=== PATIENT | female | born 2000 | race Caucasian/White ===

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

== ENCOUNTER 2022-08-07 16:57 | Emergency (ER) | payer MEDICAID, OTHER ==
[2022-08-07 18:13] VITALS: TEMP 98.1
[2022-08-07 18:38] LABS: Appearance,Urine Cloudy (Clear); Bacteria,Urine Occasional /hpf; Bilirubin,Urine Negative (Negative); Blood,Urine Negative (Negative); Color,Urine Yellow; Glucose,Urine (UA) Negative (Negative); Ketones,Urine Trace (Negative); Leukocyte Esterase,Urine Moderate (Negative); Mucus,Urine Few /hpf; Nitrite,Urine Negative (Negative); PH, Urine 5.5 (5.0-8.0); Protein,Urine Trace (Negative); Specific Gravity,Urine 1.033 (1.001-1.035); Squamous Epithelial Cell,Urine 4 /hpf (0-4); Urobilinogen,Urine <2.0 mg/dL (<2.0); WBC,Urine 4 /hpf (0-5)
[2022-08-07] MEDS ORDERED: SODIUM CHLORIDE 0.9% 1,000 ML IV STA (19:46)
--- NOTE | 2022-08-07 19:53 | ED ---
General Adult HPI - General Chief complaint: Abdominal Pain Stated complaint: newly preg, cramping Time Seen by Provider: 08/07/22 19:38 Source: patient, RN notes reviewed Mode of arrival: ambulatory Limitations: no limitations - History of Present Illness Initial comments: 22-year-old female presents to the emergency Department with complaints of lower abdominal cramping that extends throughout her abdomen. States she has had this discomfort for the past week and a half. Was seen by her PCP this past week and started on an antidepressant, then found out yesterday that she is . LMP [id number]. . Had one day of light spotting a couple weeks ago but no vaginal bleeding or discharge currently. Reports mild nausea today. Denies fever, chills, headache, dizziness, chest pain, shortness of breath, vomiting, diarrhea, or dysuria. - Related Data Home Medications Medication Instructions Recorded Confirmed Dolutegravir Sodium [Tivicay] 50 mg PO DAILY 08/01/17 08/01/17 Emtricitabine/Tenofovir (Tdf) 1 tab PO DAILY 08/01/17 08/01/17 [Truvada 200 mg-300 mg Tablet] Previous Rx's Medication Instructions Recorded Xzu-Bmsh-Sawkd Acid 1 each PO DAILY #30 cap 08/08/22 [-U Capsule] Allergies Allergy/AdvReac Type Severity Reaction Status Date / Time No Known Allergies Allergy Verified 08/07/22 18:13 Review of Systems ROS Statement: Those systems with pertinent positive or pertinent negative responses have been documented in the HPI. ROS Other: All systems not noted in ROS Statement are negative. Past Medical History Past Medical History: No Reported History Additional Past Medical History / Comment(s): past suicidal attempt History of Any Multi-Drug Resistant Organisms: None Reported Past Surgical History: Tonsillectomy Past Anesthesia/Blood Transfusion Reactions: No Reported Reaction Past Psychological History: Anxiety, Depression Smoking Status: Never smoker Past Alcohol Use History: Occasional Past Drug Use History: None Reported General Exam Limitations: no limitations General appearance: alert, in no apparent distress ENT exam: Present: normal exam, mucous membranes moist Respiratory exam: Present: normal lung sounds bilaterally. Absent: respiratory distress, wheezes, rales, rhonchi, stridor Cardiovascular Exam: Present: regular rate, normal rhythm, normal heart sounds. Absent: systolic murmur, diastolic murmur, rubs, gallop, clicks GI/Abdominal exam: Present: soft, normal bowel sounds. Absent: distended, tenderness, guarding, rebound, rigid External exam: Present: normal external exam Back exam: Absent: CVA tenderness (R), CVA tenderness (L) Neurological exam: Present: alert, oriented X3, CN II-XII intact Psychiatric exam: Present: normal affect, normal mood Skin exam: Present: warm, dry, intact, normal color. Absent: rash Course Vital Signs 08/07/22 08/07/22 18:11 22:06 Temperature 98.1 F Pulse Rate 98 93 Respiratory 16 18 Rate Blood Pressure 134/84 136/78 O2 Sat by Pulse 98 98 Oximetry - Reevaluation(s) Reevaluation #1: 08/07/22 19:45 Upon initial evaluation, patient is well-appearing, moving freely, and in no acute distress. She verbalizes concern for ectopic . Abdominal discomfort is nonlocalized and not reproducible with palpation. Explained plan of care including laboratory studies and ultrasound. Patient is agreeable. Family present at bedside. 08/07/22 21:45 Results were reviewed and discussed at length with patient. Reiterated the importance of having repeat beta hCG drawn in 48 hours as initial level provides baseline from which to reevaluate. Explained nondiagnostic ultrasound. Given her minimal discomfort, stable vital signs, and current laboratory studies, patient will be discharged home to follow up with her PCP. Did provide [facility] follow-up information and encouraged her to call on Tuesday to set up an initial appointment. Strict return parameters were discussed in detail. Patient and family verbalized understanding and agreed with this plan. 08/08/22 14:59 In reviewing this patient's chart, I realized that a vitamin had not yet been prescribed therefore one will be sent to patient's pharmacy. Medical Decision Making - Medical Decision Making This is a pleasant 22-year-old female with no significant past medical history w ho presents to the emergency department for evaluation of generalized abdominal cramping in early . Patient's last menstrual period was 54547. This is her first . Upon exam, patient is well-appearing and in no acute distress. She clearly articulates diffuse abdominal cramping discomfort that is non-peritoneal and not reproducible. Given the concern for ectopic , ultrasound was obtained, however no IUP or adnexal mass was identified. Laboratory studies were obtained. Beta hCG is 210.8. There is minimal leukocytosis. Urinalysis is not indicative of UTI. Results were discussed with patient at length. Because of her low hCG level, stable vital signs, and minim al discomfort, she will be discharged home with instructions to have repeat beta hCG drawn in 48 hours along with close follow-up. Return parameters were discussed in detail. Patient verbalizes understanding and agrees with this plan. Attending: Edwige. Note: vitamin called into pharmacy. - Lab Data Result diagrams: 08/07/22 19:55 08/07/22 19:55 Lab Results 08/07/22 08/07/22 08/07/22 Range/Units 18:20 18:20 19:55 WBC 12.8 H (3.8-10.6) k/uL RBC 5.18 (3.80-5.40) m/uL Hgb 14.1 (11.4-16.0) gm/dL Hct 42.7 (34.0-46.0) % MCV 82.5 (80.0-100.0) fL MCH 27.2 (25.0-35.0) pg MCHC 32.9 (31.0-37.0) g/dL RDW 14.3 (11.5-15.5) % Plt Count 354 (150-450) k/uL MPV 7.8 Neutrophils % 58 % Lymphocytes % 33 % Monocytes % 5 % Eosinophils % 1 % Basophils % 1 % Neutrophils # 7.4 (1.3-7.7) k/uL Lymphocytes # 4.2 (1.0-4.8) k/uL Monocytes # 0.6 (0-1.0) k/uL Eosinophils # 0.1 (0-0.7) k/uL Basophils # 0.1 (0-0.2) k/uL Sodium (137-145) mmol/L Potassium (3.5-5.1) mmol/L Chloride (98-107) mmol/L Carbon Dioxide (22-30) mmol/L Anion Gap mmol/L BUN (7-17) mg/dL Creatinine (0.52-1.04) mg/dL Est GFR (CKD-EPI)AfAm (>60 ml/min/1.73 sqM) Est GFR (CKD-EPI)NonAf (>60 ml/min/1.73 sqM) Glucose (74-99) mg/dL Calcium (8.4-10.2) mg/dL Total Bilirubin (0.2-1.3) mg/dL AST (14-36) U/L ALT (4-34) U/L Alkaline Phosphatase (38-126) U/L Total Protein (6.3-8.2) g/dL Albumin (3.5-5.0) g/dL HCG, Quant mIU/mL Urine Color Yellow Urine Appearance Cloudy H (Clear) Urine pH 5.5 (5.0-8.0) Ur Specific Orange 1.033 (1.001-1.035) Urine Protein Trace H (Negative) Urine Glucose (UA) Negative (Negative) Urine Ketones Trace H (Negative) Urine Blood Negative (Negative) Urine Nitrite Negative (Negative) Urine Bilirubin Negative (Negative) Urine Urobilinogen <2.0 (<2.0) mg/dL Ur Leukocyte Esterase Moderate H (Negative) Urine WBC 4 (0-5) /hpf Ur Squamous Epith Cells 4 (0-4) /hpf Urine Bacteria Occasional H (None) /hpf Urine Mucus Few H (None) /hpf Urine HCG, Qual Detected (Not Detectd) Blood Type Blood Type Recheck Bld Type Recheck Status 08/07/22 08/07/22 Range/Units 19:55 20:00 WBC (3.8-10.6) k/uL RBC (3.80-5.40) m/uL Hgb (11.4-16.0) gm/dL Hct (34.0-46.0) % MCV (80.0-100.0) fL MCH (25.0-35.0) pg MCHC (31.0-37.0) g/dL RDW (11.5-15.5) % Plt Count (150-450) k/uL MPV Neutrophils % % Lymphocytes % % Monocytes % % Eosinophils % % Basophils % % Neutrophils # (1.3-7.7) k/uL Lymphocytes # (1.0-4.8) k/uL Monocytes # (0-1.0) k/uL Eosinophils # (0-0.7) k/uL Basophils # (0-0.2) k/uL Sodium 137 (137-145) mmol/L Potassium 4.1 (3.5-5.1) mmol/L Chloride 106 (98-107) mmol/L Carbon Dioxide 24 (22-30) mmol/L Anion Gap 7 mmol/L BUN 10 (7-17) mg/dL Creatinine 0.60 (0.52-1.04) mg/dL Est GFR (CKD-EPI)AfAm >90 (>60 ml/min/1.73 sqM) Est GFR (CKD-EPI)NonAf >90 (>60 ml/min/1.73 sqM) Glucose 108 H (74-99) mg/dL Calcium 9.1 (8.4-10.2) mg/dL Total Bilirubin 0.3 (0.2-1.3) mg/dL AST 22 (14-36) U/L ALT 28 (4-34) U/L Alkaline Phosphatase 77 (38-126) U/L Total Protein 6.9 (6.3-8.2) g/dL Albumin 4.3 (3.5-5.0) g/dL HCG, Quant 210.8 mIU/mL Urine Color Urine Appearance (Clear) Urine pH (5.0-8.0) Ur Specific Orange (1.001-1.035) Urine Protein (Negative) Urine Glucose (UA) (Negative) Urine Ketones (Negative) Urine Blood (Negative) Urine Nitrite (Negative) Urine Bilirubin (Negative) Urine Urobilinogen (<2.0) mg/dL Ur Leukocyte Esterase (Negative) Urine WBC (0-5) /hpf Ur Squamous Epith Cells (0-4) /hpf Urine Bacteria (None) /hpf Urine Mucus (None) /hpf Urine HCG, Qual (Not Detectd) Blood Type O Positive Blood Type Recheck No Previous Record Bld Type Recheck Status [facility] ONLY - Radiology Data Radiology results: report reviewed, image reviewed ultrasound was obtained. Report was reviewed in its entirety. Impression per Dr. Ortiz is uterus is empty. No evidence of a gestational sac. No adnexal mass. Disposition Clinical Impression: Abdominal pain during in first trimester Disposition: HOME SELF-CARE Condition: Stable Instructions (If sedation given, give patient instructions): Abdominal Pain in (ED) Additional Instructions: Increase fluids. Rest. Minimize vigorous activity. Have repeat blood work drawn in 48 hours. Initial beta hCG 210.8 Follow-up with your PCP and establish with [facility]. Return to the emergency department with any new, worsening, or concerning symptoms. Prescriptions: Fcm-Zoog-Brsxo Acid [-U Capsule] 1 each PO DAILY #30 cap Is patient prescribed a controlled substance at d/c from ED?: No Referrals: Elmer Hunt DO [Primary Care Provider] - 1-2 days [facility] [Provider Group] - 1-2 days Time of Disposition: 21:47
[2022-08-07 20:17] LABS: Basophils # (A) 0.1 k/uL (0-0.2); Basophils % (A) 1 %; Eosinophils # (A) 0.1 k/uL (0-0.7); Eosinophils % (A) 1 %; HCT 42.7 % (34.0-46.0); HGB 14.1 gm/dL (11.4-16.0); Lymphocytes # (A) 4.2 k/uL (1.0-4.8); Lymphocytes % (A) 33 %; MCH 27.2 pg (25.0-35.0); MCHC 32.9 g/dL (31.0-37.0); MCV 82.5 fL (80.0-100.0); Mean Platelet Volume 7.8; Monocytes # (A) 0.6 k/uL (0-1.0); Monocytes % (A) 5 %; Neutrophils # (A) 7.4 k/uL (1.3-7.7); Neutrophils % (A) 58 %; Platelet Count 354 k/uL (150-450); RBC 5.18 m/uL (3.80-5.40); RDW 14.3 % (11.5-15.5); WBC 12.8 k/uL (3.8-10.6)
[2022-08-07 20:49] LABS: ALT 28 U/L (4-34); AST 22 U/L (14-36); African American GFR (CKD) >90 (>60 ml/min/1.73 sqM); Albumin 4.3 g/dL (3.5-5.0); Alkaline Phosphatase 77 U/L (38-126); Anion Gap 7 mmol/L; Blood Urea Nitrogen 10 mg/dL (7-17); Calcium 9.1 mg/dL (8.4-10.2); Carbon Dioxide 24 mmol/L (22-30); Chloride 106 mmol/L (98-107); Glucose 108 mg/dL (74-99); Non-African American GFR(CKD) >90 (>60 ml/min/1.73 sqM); Potassium 4.1 mmol/L (3.5-5.1); Sodium 137 mmol/L (137-145); Total Bilirubin 0.3 mg/dL (0.2-1.3); Total Protein 6.9 g/dL (6.3-8.2)
[2022-08-07 21:05] LABS: HCG,Quantitative Serum 210.8 mIU/mL
--- NOTE | 2022-08-07 21:13 | US ---
EXAMINATION TYPE: Transabdominal DATE OF EXAM: 08/07/2022 8:53 PM COMPARISON: NONE CLINICAL HISTORY: lower abdominal cramping in early . Irregular menses- estimated EXAM PERFORMED: Transabdominal (TA) EXAM MEASUREMENTS: GESTATIONAL AGE / DATING Physician Established: Not yet established Dates by LMP: Estimated (9 weeks/4 days) EDC: 03/08/2023 Dates by First Scan: No previous this is first scan Dates by Current Scan for: No IUP seen at this time MATERNAL ANATOMY Uterus: 7.0 x 4.0 x 3.9 cm Right Ovary: 2.7 x 1.8 x 1.9 cm Left Ovary: 3.0 x 2.0 x 2.2 cm Post CDS / Adnexa: no free fluid Presence of free fluid: no Presence of corpus luteal cyst: no GESTATION / SURVEY MSD: No gestational sac visualized at time of scan IUP: No IUP seen at this time Date of LMP: Estimated 06/01/2022, G1 Beta HcG (if available): Not available at this time No GS, YS or CRL visualized at time of scan. Endometrium appears thickened = 1.3 cm. IMPRESSION: Uterus is empty. No evidence of a gestational sac.no adnexal mass.
[2022-08-07 22:07] VITALS: BP 136/78; PULSE 93; RESP 18
== END 2022-08-07 22:06 | disposition home or self-care (01) ==
LOC: EC 16:57
DX: O26.891 Other specified pregnancy related conditions, first trimester (principal); R10.30 Lower abdominal pain, unspecified; Z3A.09 9 weeks gestation of pregnancy
CPT/HCPCS: 36415; 76801; 80053; 81001; 81025; 84702; 85025; 86900; 86901; 96360; 99284

== ENCOUNTER 2022-08-09 09:33 | Emergency (ER) | payer MEDICAID ==
[2022-08-09 09:52] VITALS: BP 150/95; PULSE 85; RESP 18; TEMP 98.1
--- NOTE | 2022-08-09 10:27 | ED ---
Female Urogenital HPI - General Chief complaint: Vaginal Bleeding Stated complaint: Cramps,5wks Time Seen by Provider: 08/09/22 09:59 Source: patient Mode of arrival: ambulatory Limitations: no limitations - History of Present Illness Initial comments: 22-year-old female presents emergency Department with chief complaint of vaginal bleeding. Patient was seen here 2 days ago for abdominal cramping early . Patient is A0 approximate 5 weeks . Patient states started having some bleeding noted she still having cramping. Patient did have such labs which showed an hCG of 213. Patient is O+ blood type. Patient offers no other significant complaints. - Related Data Home Medications Medication Instructions Recorded Confirmed Dolutegravir Sodium [Tivicay] 50 mg PO DAILY 08/01/17 08/01/17 Emtricitabine/Tenofovir (Tdf) 1 tab PO DAILY 08/01/17 08/01/17 [Truvada 200 mg-300 mg Tablet] Previous Rx's Medication Instructions Recorded Qgt-Czti-Vhont Acid 1 each PO DAILY #30 cap 08/08/22 [-U Capsule] Allergies Allergy/AdvReac Type Severity Reaction Status Date / Time No Known Allergies Allergy Verified 08/09/22 09:52 Review of Systems ROS Statement: Those systems with pertinent positive or pertinent negative responses have been documented in the HPI. ROS Other: All systems not noted in ROS Statement are negative. Past Medical History Past Medical History: No Reported History Additional Past Medical History / Comment(s): past suicidal attempt History of Any Multi-Drug Resistant Organisms: None Reported Past Surgical History: Tonsillectomy Past Anesthesia/Blood Transfusion Reactions: No Reported Reaction Past Psychological History: Anxiety, Depression Smoking Status: Never smoker Past Alcohol Use History: Occasional Past Drug Use History: None Reported General Exam Limitations: no limitations General appearance: alert, in no apparent distress Head exam: Present: atraumatic, normocephalic, normal inspection Eye exam: Present: normal appearance, PERRL, EOMI. Absent: scleral icterus, conjunctival injection, periorbital swelling ENT exam: Present: normal exam, normal oropharynx, mucous membranes moist Neck exam: Present: normal inspection, full ROM. Absent: tenderness, meningismus, lymphadenopathy Respiratory exam: Present: normal lung sounds bilaterally. Absent: respiratory distress, wheezes, rales, rhonchi, stridor Cardiovascular Exam: Present: regular rate, normal rhythm, normal heart sounds. Absent: systolic murmur, diastolic murmur, rubs, gallop, clicks GI/Abdominal exam: Present: soft, normal bowel sounds. Absent: distended, tenderness, guarding, rebound, rigid Back exam: Absent: CVA tenderness (R), CVA tenderness (L) Neurological exam: Present: alert Course Vital Signs 08/09/22 09:49 Temperature 98.1 F Pulse Rate 85 Respiratory 18 Rate Blood Pressure 150/95 O2 Sat by Pulse 98 Oximetry Medical Decision Making - Medical Decision Making Patient's hCG did increase at this time. Patient will have repeat labs in 2 days. Return parameters were discussed. - Lab Data Lab Results 08/09/22 Range/Units 10:07 HCG, Quant 429.5 mIU/mL Disposition Clinical Impression: Threatened miscarriage in early Disposition: HOME SELF-CARE Condition: Stable Instructions (If sedation given, give patient instructions): Threatened Miscarriage (ED) Additional Instructions: Please return to the Emergency Department if symptoms worsen or any other concerns. Is patient prescribed a controlled substance at d/c from ED?: No Referrals: Elmer Hunt DO [Primary Care Provider] - 1-2 days Time of Disposition: 11:45
== END 2022-08-09 11:55 | disposition home or self-care (01) ==
LOC: EC 09:33
DX: O20.0 Threatened abortion (principal); Z3A.01 Less than 8 weeks gestation of pregnancy
CPT/HCPCS: 36415; 84702; 99284

== ENCOUNTER → 2022-08-11 | Outpatient (CLI) | payer MEDICAID | END | disposition home or self-care (01) | LOC: LABWHC1 13:23 | PROVIDERS: ATTEND Physician Assistant | DX: O02.1 Missed abortion (principal); Z3A.00 Weeks of gestation of pregnancy not specified | CPT/HCPCS: 36415; 84702 ==

== ENCOUNTER 2022-12-23 17:21 | Outpatient (CLI) | payer MEDICAID, OTHER ==
[2022-12-23 18:14] LABS: Glucose,Whole Blood 92 mg/dL (70-110)
[2022-12-23 18:46] VITALS: BP 140/65; PULSE 104; RESP 18; TEMP 98.7
--- NOTE | 2022-12-29 05:43 | P.MSEPDOC ---
Presenting Problems - Arrival Data Date of Arrival on Unit: 12/23/22 Time of Arrival on Unit: 17:21 Mode of Transport: Ambulatory - Complaint OB-Reason for Admission/Chief Complaint: Pain Comment: R sided round ligament pain and tingling of fingers on bilateral hands Medical History - Information : 1 Number of Living Children: 0 - Gestational Age Gestational Age by ANT (wks/days): 23 Weeks and 5 Days Review of Systems - Review of Systems Constitutional: No problems Breast: No problems ENT: No problems Cardiovascular: No problems Respiratory: No problems Gastrointestinal: No problems Genitourinary: No problems Musculoskeletal: No problems Neurological: No problems Skin: No problems Vital Signs - Temperature Temperature: 98.7 F Temperature Source: Temporal Artery Scan - Pulse Right Sitting Brachial Pulse Rate: 104 Pulse Assessment Method: Automatic Cuff - Respirations Respiratory Rate: 18 Oxygen Delivery Method: Room Air O2 Sat by Pulse Oximetry: 98 - Blood Pressure Right Arm Sitting Blood Pressure: 140/65 Blood Pressure Mean: 90 Blood Pressure Source: Automatic Cuff Medical Screen Scoring - Assessment - Baby A Baseline FHR: 140 Heart Rate - NICHD Category: Category I (Normal) Physician Notification - Physician Notified Physician Notified Date: 12/23/22 Physician Notified Time: 18:40 Physician: Andie Larsen Order Received: Yes - Notification Comment Comment: Spk c\Dr. Larsen, reviewed pts concerns of R sided pain, sharp and pulling. in nature when ambulating, resolved at rest and tingling fingertips. Accuchek taken, 92. FHT appropriate for gestational age. No contractions. Has appt c\Hilary tomorrow. States to d/c home and follow up at scheduled appt tomorrow. Maternal Triage Index - Maternal Triage Index Presenting for scheduled procedure w/no complaint: No - Stat/Priority 1 Stat Priority 1: No - Urgent/Priority 2 Urgent Priority 2: No - Prompt/Priority 3 Prompt Priority 3: No - Non-Urgent/Priority 4 Non-Urgent Priority 4: Yes Criteria Met for Priority 4: R sided ligament pain Disposition - Disposition OB Disposition: Discharge to home, Written follow up instructions reviewed Discharge Date: 12/23/22 Discharge Time: 18:45 I agree with the RN Medical Screening Exam: Yes Case reviewed; plan agreed upon as documented in EMR&OBIX.: Yes Diagnosis: musculoskeletal pain in
== END 2022-12-23 18:45 | disposition home or self-care (01) ==
LOC: FBPOP 17:21
PROVIDERS: ATTEND Obstetrics & Gynecology
DX: O26.892 Other specified pregnancy related conditions, second trimester (principal); O99.332 Smoking (tobacco) complicating pregnancy, second trimester; F17.200 Nicotine dependence, unspecified, uncomplicated; Z3A.23 23 weeks gestation of pregnancy
CPT/HCPCS: 99213

== ENCOUNTER 2023-01-15 11:51 | Outpatient (CLI) | payer OTHER ==
[2023-01-15 13:41] VITALS: BP 145/66; PULSE 100; RESP 17; TEMP 98.1
--- NOTE | 2023-01-26 22:05 | P.MSEPDOC ---
Presenting Problems - Arrival Data Date of Arrival on Unit: 01/15/23 Time of Arrival on Unit: 11:51 Mode of Transport: Ambulatory - Complaint OB-Reason for Admission/Chief Complaint: Decreased Movement, Other Comment: pt presented to triage for no movement since last night Medical History - Information : 1 Para: 0 Term: 0 : 0 Abortions: Spontaneous or Elective: 0 Number of Living Children: 0 - Gestational Age Gestational Age by ANT (wks/days): 27 Weeks and 0 Days Review of Systems - Review of Systems Constitutional: No problems Breast: No problems ENT: No problems Cardiovascular: No problems Respiratory: No problems Gastrointestinal: No problems Genitourinary: No problems Musculoskeletal: No problems Neurological: No problems Skin: No problems Vital Signs - Temperature Temperature: 98.1 F Temperature Source: Temporal Artery Scan - Pulse Right Brachial Pulse Rate: 100 Pulse Assessment Method: Automatic Cuff - Respirations Respiratory Rate: 17 Oxygen Delivery Method: Room Air O2 Sat by Pulse Oximetry: 98 - Blood Pressure Right Arm Blood Pressure: 145/66 Blood Pressure Mean: 92 Blood Pressure Source: Automatic Cuff Medical Screen Scoring - Uterine Contractions Resting: Soft to palpation - Assessment - Baby A Baseline FHR: 135 Heart Rate - NICHD Category: Category I (Normal) Physician Notification - Physician Notified Physician Notified Date: 01/15/23 Physician Notified Time: 12:33 Physician: Andie Larsen New Order Received: Yes - Notification Comment Comment: category 1 fht's, pt feeling movement once she was in triage, pt will follow up in office at scheduled appt with Dr. Richard Maternal Triage Index - Maternal Triage Index Presenting for scheduled procedure w/no complaint: No - Stat/Priority 1 Stat Priority 1: No - Urgent/Priority 2 Urgent Priority 2: Yes Provider Notified: Andie Larsen Provider Notified Time: 12:33 Criteria Met for Priority 2: pt presented to triage for no movement since last night Disposition - Disposition OB Disposition: Triage, Discharge to home, Written follow up instructions desmond morrell Discharge Date: 01/15/23 Discharge Time: 12:42 I agree with the RN Medical Screening Exam: Yes Case reviewed; plan agreed upon as documented in EMR&OBIX.: Yes Diagnosis: decreased movement
== END 2023-01-15 12:45 | disposition home or self-care (01) ==
LOC: FBPOP 11:51
PROVIDERS: ATTEND Obstetrics & Gynecology
DX: O36.8121 Decreased fetal movements, second trimester, fetus 1 (principal); Z3A.27 27 weeks gestation of pregnancy; O99.332 Smoking (tobacco) complicating pregnancy, second trimester; F17.200 Nicotine dependence, unspecified, uncomplicated
CPT/HCPCS: 99213

== ENCOUNTER 2023-03-01 13:02 | Outpatient (CLI) | payer OTHER ==
[2023-03-01 14:22] VITALS: BP 124/69; PULSE 114; RESP 18; TEMP 97.3
--- NOTE | 2023-03-23 11:32 | P.MSEPDOC ---
Presenting Problems - Arrival Data Date of Arrival on Unit: 03/01/23 Time of Arrival on Unit: 13:02 Mode of Transport: Ambulatory - Complaint OB-Reason for Admission/Chief Complaint: Decreased Movement Comment: Decreased movement since yesterday morning, concerned about elevated blood sugars Medical History - Information : 1 Para: 0 - Gestational Age Gestational Age by ANT (wks/days): 33 Weeks and 3 Days - History Complications: GDM Review of Systems - Review of Systems Constitutional: No problems Breast: No problems ENT: No problems Cardiovascular: No problems Respiratory: No problems Gastrointestinal: No problems Genitourinary: No problems Musculoskeletal: No problems Neurological: No problems Skin: No problems Vital Signs - Temperature Temperature: 97.3 F Temperature Source: Temporal Artery Scan - Pulse Right Sitting Brachial Pulse Rate: 114 Pulse Assessment Method: Automatic Cuff - Respirations Respiratory Rate: 18 Oxygen Delivery Method: Room Air - Blood Pressure Right Arm Sitting Blood Pressure: 124/69 Blood Pressure Mean: 87 Blood Pressure Source: Automatic Cuff Medical Screen Scoring - Assessment - Baby A Baseline FHR: 140 Heart Rate - NICHD Category: Category I (Normal) NST: Reactive Physician Notification - Physician Notified Physician Notified Date: 03/01/23 Physician Notified Time: 14:00 Physician: Dianna Richard - Notification Comment Comment: Spk c\celestina Thornton of pts arrival to triage, concerns of decreased. movement and elevated blood sugars. +FM, audible and palpable, reactive FHT, NST. not complete r/t time on monitor, difficult to trace FHT r/t pt habitus. Reviewed pts. blood sugar log. Pt cancelled diabetes nutrition education r/t nausea today. Order rec'd. to complete NST and discharge home c\order to follow up and rescheduled education. Maternal Triage Index - Urgent/Priority 2 Urgent Priority 2: Yes Provider Notified: Dianna Richard Provider Notified Time: 14:00 Criteria Met for Priority 2: Decreased movement Disposition - Disposition OB Disposition: Discharge to home, Written follow up instructions reviewed Discharge Date: 03/01/23 Discharge Time: 14:20 I agree with the RN Medical Screening Exam: Yes Physician's MSE Comment: I have neither seen nor examined the patient Case reviewed; plan agreed upon as documented in EMR&OBIX.: Yes Diagnosis: RELATED CONDITIONS, UNSPECIFIED, THIRD TRIMESTER
== END 2023-03-01 14:20 | disposition home or self-care (01) ==
LOC: FBPOP 13:02
PROVIDERS: ATTEND Obstetrics & Gynecology
DX: O36.8131 Decreased fetal movements, third trimester, fetus 1 (principal); F17.200 Nicotine dependence, unspecified, uncomplicated; O24.419 Gestational diabetes mellitus in pregnancy, unspecified control; O99.333 Smoking (tobacco) complicating pregnancy, third trimester; Z3A.33 33 weeks gestation of pregnancy
CPT/HCPCS: 59025; G0463; 99213

== ENCOUNTER 2023-03-03 00:12 | Emergency (ER) | payer MEDICAID, OTHER ==
[2023-03-03 00:21] VITALS: TEMP 98.5
[2023-03-03] MEDS ORDERED: ONDANSETRON 4 MG/2 ML VIAL IVP STA (02:11)
[2023-03-03] MEDS ORDERED: SODIUM CHLORIDE 0.9% 1,000 ML IV ONE (02:11)
[2023-03-03] MEDS ORDERED: IPRATROPIUM-ALBUTEROL 3 ML NEB INHALATION STA (02:11)
[2023-03-03 02:40] LABS: Basophils % (A) 0 %; Eosinophils # (A) 0.1 k/uL (0-0.7); Eosinophils % (A) 1 %; HCT 35.5 % (34.0-46.0); HGB 11.8 gm/dL (11.4-16.0); Lymphocytes # (A) 1.2 k/uL (1.0-4.8); Lymphocytes % (A) 12 %; MCH 27.4 pg (25.0-35.0); MCHC 33.2 g/dL (31.0-37.0); MCV 82.5 fL (80.0-100.0); Mean Platelet Volume 8.6; Monocytes # (A) 0.9 k/uL (0-1.0); Monocytes % (A) 9 %; Neutrophils # (A) 7.3 k/uL (1.3-7.7); Neutrophils % (A) 74 %; Platelet Count 253 k/uL (150-450); RDW 14.7 % (11.5-15.5); WBC 9.9 k/uL (3.8-10.6)
[2023-03-03 02:53] LABS: ALT 24 U/L (4-34); AST 36 U/L (14-36); African American GFR (CKD) >90 (>60 ml/min/1.73 sqM); Albumin 3.3 g/dL (3.5-5.0); Alkaline Phosphatase 88 U/L (38-126); Anion Gap 8 mmol/L; Blood Urea Nitrogen 4 mg/dL (7-17); Calcium 8.6 mg/dL (8.4-10.2); Carbon Dioxide 23 mmol/L (22-30); Chloride 102 mmol/L (98-107); Glucose 105 mg/dL (74-99); Non-African American GFR(CKD) >90 (>60 ml/min/1.73 sqM); Potassium 3.5 mmol/L (3.5-5.1); Sodium 133 mmol/L (137-145); Total Bilirubin 0.5 mg/dL (0.2-1.3)
[2023-03-03 03:12] VITALS: RESP 20
--- NOTE | 2023-03-03 04:13 | XR ---
EXAM: XR Chest, 2 Views CLINICAL HISTORY: ITS.REASON XR Reason: Cough/pain COUGH, CONGESTION, SOB, VOMITING. PT IS 33 WEEKS AND SHIELDED TECHNIQUE: Frontal and lateral views of the chest. COMPARISON: XR Chest dated 11/03/2016 FINDINGS: Lungs: Unremarkable. No consolidation. Pleural space: Unremarkable. No pneumothorax. Heart: Unremarkable. No cardiomegaly. Mediastinum: Unremarkable. Bones/joints: Unremarkable. IMPRESSION: No evidence of acute cardiopulmonary disease.
--- NOTE | 2023-03-03 04:30 | ED ---
URI HPI - General Chief Complaint: Upper Respiratory Infection Stated Complaint: Cough, Congestion, Shortness of breath, vomiting Time Seen by Provider: 03/03/23 00:20 Source: patient Mode of arrival: ambulatory Limitations: no limitations - History of Present Illness Initial Comments: 22-year-old female who is 33 weeks presents to the emergency department reporting cough, congestion and shortness of breath. Symptoms present for the past couple of days. Admits that her mom is hospitalized for pneumonia. She took a home Covid test which was negative. She is using Tylenol at home for her symptoms. She denies chest pain. No history of asthma. Admits to nausea and has had some posttussive emesis. No fevers. No other alleviating, pre cipitating or modifying factors - Related Data Home Medications Medication Instructions Recorded Confirmed Famotidine [Pepcid] 10 mg PO BID 01/15/23 03/01/23 Previous Rx's Medication Instructions Recorded [id number] Acid 1 each PO DAILY #30 cap 08/08/22 [-U Capsule] Albuterol Inhaler [Ventolin Hfa 1 - 2 puff INHALATION Q6H PRN #1 03/03/23 Inhaler] each diphenhydrAMINE [Benadryl] 25 mg PO QID PRN #30 capsule 03/03/23 Allergies Allergy/AdvReac Type Severity Reaction Status Date / Time No Known Allergies Allergy Verified 03/03/23 00:17 Review of Systems ROS Statement: Those systems with pertinent positive or pertinent negative responses have been documented in the HPI. ROS Other: All systems not noted in ROS Statement are negative. Past Medical History Past Medical History: No Reported History Additional Past Medical History / Comment(s): past suicidal attempt History of Any Multi-Drug Resistant Organisms: None Reported Past Surgical History: Tonsillectomy Past Anesthesia/Blood Transfusion Reactions: No Reported Reaction Past Psychological History: Anxiety, Depression Smoking Status: Never smoker Past Alcohol Use History: None Reported Past Drug Use History: None Reported General Exam Limitations: no limitations General appearance: alert, in no apparent distress Head exam: Present: atraumatic, normocephalic, normal inspection Eye exam: Present: normal appearance, PERRL, EOMI. Absent: scleral icterus, conjunctival injection, periorbital swelling ENT exam: Present: normal exam, mucous membranes moist, other (nasal congestion) Neck exam: Present: normal inspection. Absent: tenderness, meningismus, lymphadenopathy Respiratory exam: Present: wheezes. Absent: respiratory distress, rales, rhonchi, stridor Cardiovascular Exam: Present: normal rhythm, tachycardia, normal heart sounds. Absent: systolic murmur, diastolic murmur, rubs, gallop, clicks GI/Abdominal exam: Present: soft, normal bowel sounds, other (gravid). Absent: distended, tenderness, guarding, rebound, rigid Extremities exam: Present: normal inspection, full ROM, normal capillary refill. Absent: tenderness, pedal edema, joint swelling, calf tenderness Back exam: Present: normal inspection Neurological exam: Present: alert, oriented X3, CN II-XII intact Psychiatric exam: Present: normal affect, normal mood Skin exam: Present: warm, dry, intact, normal color. Absent: rash Course Vital Signs 03/03/23 03/03/23 03/03/23 00:18 03:10 03:18 Temperature 98.5 F Pulse Rate 122 H 116 H 114 H Respiratory 22 20 Rate Blood Pressure 101/75 134/79 O2 Sat by Pulse 97 97 Oximetry 03/03/23 03/03/23 03:28 04:37 Temperature Pulse Rate 120 H 105 H Respiratory 20 Rate Blood Pressure 141/75 O2 Sat by Pulse 97 Oximetry Medical Decision Making - Medical Decision Making Was pt. sent in by a medical professional or institution ([facility], GUEST SERVICES AMBASSADOR, urgent care, hospital, or longterm...) When possible be specific @ -No Did you speak to anyone other than the patient for history (EMS, parent, family, police, friend...)? What history was obtained from this source @ -No Did you review nursing and triage notes (agree or disagree)? Why? @ -I reviewed and agree with nursing and triage notes Were old charts reviewed (outside hosp., previous admission, EMS record, old EKG, old radiological studies, urgent care reports/EKG's, longterm records)? Report findings @ -No old charts were reviewed Differential Diagnosis (chest pain, altered mental status, abdominal pain women, abdominal pain men, vaginal bleeding, weakness, fever, dyspnea, syncope, headache, dizziness, GI bleed, back pain, seizure, CVA, palpatations, mental health, musculoskeletal)? @ -influenza, covid, rsv, pneumonia EKG interpreted by me (3pts min.). @ -not done X-rays interpreted by me (1pt min.). @ -yes - no acute process CT interpreted by me (1pt min.). @ -None done U/S interpreted by me (1pt. min.). @ -None done What testing was considered but not performed or refused? (CT, X-rays, U/S, labs)? Why? @ -NST upstairs - patient refused What meds were considered but not given or refused? Why? @ -steroids - patient therefore recommended to use only if absolutely needed Did you discuss the management of the patient with other professionals (professionals i.e. , PA, GUEST SERVICES AMBASSADOR, lab, RT, psych nurse, social services assistant, call center trainer, teacher, cavalry officer, insurance case manager)? Give summary @ -No Was smoking cessation discussed for >3mins.? @ -No Was critical care preformed (if so, how long)? @ -No Were there social determinants of health that impacted care today? How? (Homelessness, low income, unemployed, alcoholism, drug addiction, transportation, low edu. Level, literacy, decrease access to med. care, longterm, rehab)? @ -No Was there de-escalation of care discussed even if they declined (Discuss DNR or withdrawal of care, Hospice)? DNR status @ -No What co-morbidities impacted this encounter? (DM, HTN, Smoking, COPD, CAD, Cancer, CVA, ARF, Chemo, Hep., AIDS, mental health diagnosis, sleep apnea, morbid obesity)? @ -None Was patient admitted / discharged? Hospital course, mention meds given and route , prescriptions, significant lab abnormalities, going to OR and other pertinent info. @ -Upon arrival patient is placed into room 25. Thorough history and physical exam was performed or patient is diffusely wheezy. She was given a DuoNeb breathing treatment. Laboratory studies were conducted. Viral swab is negative. Chest x-ray demonstrates no acute process. She was given a liter bolus normal saline, Forma grams of Zofran. Patient reevaluated and reports that she feels much improved. Patient will be discharged home with a prescription for an albuterol inhaler and Benadryl. Instructed to use the inhaler for wheezing and cough. May use the Benadryl every 6 hours for coughing and nausea. Follow-up with her STUDENT AFFAIRS VICE PRESIDENT. I did recommend that she go upstairs for an NST however she is refusing. I did perform a bedside ultrasound which demonstrates positive heart tones. Patient understood this and she was discharged in stable condition Undiagnosed new problem with uncertain prognosis? @ -yes Drug Therapy requiring intensive monitoring for toxicity (Heparin, Nitro, Insulin, Cardizem)? @ -No Were any procedures done? @ -No Diagnosis/symptom? @ -acute bronchospasm, third trimester Acute, or Chronic, or Acute on Chronic? @ -acute Uncomplicated (without systemic symptoms) or Complicated (systemic symptoms)? @ -complicated Side effects of treatment? @ -tachycardia Exacerbation, Progression, or Severe Exacerbation? @ -No Poses a threat to life or bodily function? How? (Chest pain, USA, NC, pneumonia, PE, COPD, DKA, ARF, appy, cholecystitis, CVA, Diverticulitis, Homicidal, Suicidal, threat to staff... and all critical care pts) @ -No - Lab Data Result diagrams: 03/03/23 02:18 03/03/23 02:18 Lab Results 03/03/23 03/03/23 03/03/23 Range/Units 02:18 02:18 02:18 WBC 9.9 (3.8-10.6) k/uL RBC 4.30 (3.80-5.40) m/uL Hgb 11.8 (11.4-16.0) gm/dL Hct 35.5 (34.0-46.0) % MCV 82.5 (80.0-100.0) fL MCH 27.4 (25.0-35.0) pg MCHC 33.2 (31.0-37.0) g/dL RDW 14.7 (11.5-15.5) % Plt Count 253 (150-450) k/uL MPV 8.6 Neutrophils % 74 % Lymphocytes % 12 % Monocytes % 9 % Eosinophils % 1 % Basophils % 0 % Neutrophils # 7.3 (1.3-7.7) k/uL Lymphocytes # 1.2 (1.0-4.8) k/uL Monocytes # 0.9 (0-1.0) k/uL Eosinophils # 0.1 (0-0.7) k/uL Basophils # 0.0 (0-0.2) k/uL Sodium 133 L (137-145) mmol/L Potassium 3.5 (3.5-5.1) mmol/L Chloride 102 (98-107) mmol/L Carbon Dioxide 23 (22-30) mmol/L Anion Gap 8 mmol/L BUN 4 L (7-17) mg/dL Creatinine 0.52 (0.52-1.04) mg/dL Est GFR (CKD-EPI)AfAm >90 (>60 ml/min/1.73 sqM) Est GFR (CKD-EPI)NonAf >90 (>60 ml/min/1.73 sqM) Glucose 105 H (74-99) mg/dL Plasma Lactic Acid Gilbert (0.7-2.0) mmol/L Calcium 8.6 (8.4-10.2) mg/dL Total Bilirubin 0.5 (0.2-1.3) mg/dL AST 36 (14-36) U/L ALT 24 (4-34) U/L Alkaline Phosphatase 88 (38-126) U/L Total Protein 6.0 L (6.3-8.2) g/dL Albumin 3.3 L (3.5-5.0) g/dL Urine Color Urine Appearance (Clear) Urine pH (5.0-8.0) Ur Specific [place] (1.001-1.035) Urine Protein (Negative) Urine Glucose (UA) (Negative) Urine Ketones (Negative) Urine Blood (Negative) Urine Nitrite (Negative) Urine Bilirubin (Negative) Urine Urobilinogen (<2.0) mg/dL Ur Leukocyte Esterase (Negative) Influenza Type A (PCR) Not Detected (Not Detectd) Influenza Type B (PCR) Not Detected (Not Detectd) RSV (PCR) Not Detected (Not Detectd) SARS-CoV-2 (PCR) Not Detected (Not Detectd) 03/03/23 03/03/23 Range/Units 02:18 04:22 WBC (3.8-10.6) k/uL RBC (3.80-5.40) m/uL Hgb (11.4-16.0) gm/dL Hct (34.0-46.0) % MCV (80.0-100.0) fL MCH (25.0-35.0) pg MCHC (31.0-37.0) g/dL RDW (11.5-15.5) % Plt Count (150-450) k/uL MPV Neutrophils % % Lymphocytes % % Monocytes % % Eosinophils % % Basophils % % Neutrophils # (1.3-7.7) k/uL Lymphocytes # (1.0-4.8) k/uL Monocytes # (0-1.0) k/uL Eosinophils # (0-0.7) k/uL Basophils # (0-0.2) k/uL Sodium (137-145) mmol/L Potassium (3.5-5.1) mmol/L Chloride (98-107) mmol/L Carbon Dioxide (22-30) mmol/L Anion Gap mmol/L BUN (7-17) mg/dL Creatinine (0.52-1.04) mg/dL Est GFR (CKD-EPI)AfAm (>60 ml/min/1.73 sqM) Est GFR (CKD-EPI)NonAf (>60 ml/min/1.73 sqM) Glucose (74-99) mg/dL Plasma Lactic Acid Gilbert 1.0 (0.7-2.0) mmol/L Calcium (8.4-10.2) mg/dL Total Bilirubin (0.2-1.3) mg/dL AST (14-36) U/L ALT (4-34) U/L Alkaline Phosphatase (38-126) U/L Total Protein (6.3-8.2) g/dL Albumin (3.5-5.0) g/dL Urine Color Yellow Urine Appearance Clear (Clear) Urine pH 6.0 (5.0-8.0) Ur Specific [place] 1.011 (1.001-1.035) Urine Protein Trace H (Negative) Urine Glucose (UA) Negative (Negative) Urine Ketones 2+ H (Negative) Urine Blood Negative (Negative) Urine Nitrite Negative (Negative) Urine Bilirubin Negative (Negative) Urine Urobilinogen <2.0 (<2.0) mg/dL Ur Leukocyte Esterase Negative (Negative) Influenza Type A (PCR) (Not Detectd) Influenza Type B (PCR) (Not Detectd) RSV (PCR) (Not Detectd) SARS-CoV-2 (PCR) (Not Detectd) Disposition Clinical Impression: Cough, Upper respiratory infection Disposition: HOME SELF-CARE Condition: Stable Instructions (If sedation given, give patient instructions): Upper Respiratory Infection (ED) Additional Instructions: Please use the inhaler every 6 hours for wheezing or cough. You can take Benadryl which will also help her cough. Follow-up with your STUDENT AFFAIRS VICE PRESIDENT and return for any new or worsening symptoms Prescriptions: diphenhydrAMINE [Benadryl] 25 mg PO QID PRN #30 capsule PRN Reason: Cough Albuterol Inhaler [Ventolin Hfa Inhaler] 1 - 2 puff INHALATION Q6H PRN #1 each PRN Reason: Cough Is patient prescribed a controlled substance at d/c from ED?: No Referrals: None,Stated [Primary Care Provider] - 1-2 days Dianna Richard MD [STAFF PHYSICIAN] - 1-2 days Time of Disposition: 04:29
[2023-03-03 04:38] VITALS: BP 141/75; PULSE 105
[2023-03-03 04:46] LABS: Appearance,Urine Clear (Clear); Bilirubin,Urine Negative (Negative); Blood,Urine Negative (Negative); Color,Urine Yellow; Glucose,Urine (UA) Negative (Negative); Ketones,Urine 2+ (Negative); Leukocyte Esterase,Urine Negative (Negative); Nitrite,Urine Negative (Negative); Protein,Urine Trace (Negative); Specific Gravity,Urine 1.011 (1.001-1.035); Urobilinogen,Urine <2.0 mg/dL (<2.0)
== END 2023-03-03 04:38 | disposition home or self-care (01) ==
LOC: EC 00:12
DX: O99.513 Diseases of the respiratory system complicating pregnancy, third trimester (principal); J06.9 Acute upper respiratory infection, unspecified; O99.343 Other mental disorders complicating pregnancy, third trimester; F41.9 Anxiety disorder, unspecified; F32.A Depression, unspecified; Z79.899 Other long term (current) drug therapy; Z3A.33 33 weeks gestation of pregnancy; Z20.822 Contact with and (suspected) exposure to COVID-19
CPT/HCPCS: 99285 ×2; 96374 ×2; 96361 ×2; 36415; 94640; 80053; 83605; 85025; 81003; 87636; 71046; J2405; 96375

== ENCOUNTER 2023-03-29 10:55 | Inpatient (IN) | payer MEDICAID, OTHER ==
[2023-03-29 11:52] LABS: Glucose,Whole Blood 129 mg/dL (70-110)
[2023-03-29 12:26] LABS: Basophils % (A) 0 %; Eosinophils # (A) 0.1 k/uL (0-0.7); Eosinophils % (A) 0 %; HCT 36.7 % (34.0-46.0); HGB 11.9 gm/dL (11.4-16.0); Hypochromasia Slight; Lymphocytes # (A) 2.7 k/uL (1.0-4.8); Lymphocytes % (A) 17 %; MCH 25.7 pg (25.0-35.0); MCHC 32.6 g/dL (31.0-37.0); Mean Platelet Volume 9.4; Monocytes # (A) 0.9 k/uL (0-1.0); Monocytes % (A) 6 %; Neutrophils # (A) 11.8 k/uL (1.3-7.7); Neutrophils % (A) 74 %; Platelet Count 313 k/uL (150-450); Poikilocytosis Slight; RBC 4.64 m/uL (3.80-5.40); RDW 15.1 % (11.5-15.5)
[2023-03-29 12:37] LABS: ALT 18 U/L (4-34); AST 21 U/L (14-36); African American GFR (CKD) >90 (>60 ml/min/1.73 sqM); Blood Urea Nitrogen 9 mg/dL (7-17); LDH 165 U/L (120-246); Non-African American GFR(CKD) >90 (>60 ml/min/1.73 sqM); Uric Acid 4.4 mg/dL (3.7-7.4)
[2023-03-29 12:43] LABS: Appearance,Urine Cloudy (Clear); Bacteria,Urine Occasional /hpf; Bilirubin,Urine Negative (Negative); Blood,Urine Negative (Negative); Calcium Oxalate Crystals,Urine Moderate /hpf; Color,Urine Yellow; Glucose,Urine (UA) Trace (Negative); Ketones,Urine Trace (Negative); Leukocyte Esterase,Urine Negative (Negative); Mucus,Urine Many /hpf; Nitrite,Urine Negative (Negative); Protein,Urine 1+ (Negative); RBC,Urine 1 /hpf (0-5); Specific Gravity,Urine 1.028 (1.001-1.035); Squamous Epithelial Cell,Urine 4 /hpf (0-4); Urobilinogen,Urine <2.0 mg/dL (<2.0); WBC,Urine 4 /hpf (0-5)
[2023-03-29 12:58] LABS: INR 0.9 (<1.2); Prothrombin Time 9.3 sec (9.0-12.0)
[2023-03-29 13:03] LABS: Partial Thromboplastin Time 19.7 sec (22.0-30.0)
[2023-03-29 13:08] LABS: Creatinine,Urine Random 238.2 mg/dL; Protein/Creatinine Ratio,Urine 0.059
[2023-03-29] MEDS ORDERED: NALBUPHINE 10 MG/ML (10 ML MDV) IV PRN (13:51)
--- NOTE | 2023-03-29 13:51 | P.HPOB ---
History of Present Illness H&P Date: 03/29/23 Chief Complaint: Elevated blood pressures Ms. Ramírez is a 22 year old at 37 weeks and 0 days with EDC of 04/19/2023 (by LMP consistent with 7 week US) who was sent to labor and delivery with elevated blood pressures and non-reactive NST in the office. Initials blood pr essures in triage are noted to be mild-range pressures of 140s/60s. The patient denies headache, visual disturbances, and right upper quadrant pain. The has also been complicated by poorly controlled gestational diabetes. The patient has not been checking blood sugars as instructed (she checks 0-1 point of care glucose levels daily rather than 4 times a day as instructed). Novolin insulin has been prescribed for the patient to take every evening at bedtime, however, the patient has not started it. The fetus has a growth ultrasound at 35 weeks which estimated the fetus to be in the 96%ile for gestational age. The patient has gained an excessive amount of weight during the (68 pounds). Maternal work-up: blood type O positive, antibody negative, rubella immune, VDRL non-reactive, GBS negative Past medical history: None Past surgical history: Tonsillectomy Past Medical History Past Medical History: No Reported History Additional Past Medical History / Comment(s): past suicidal attempt History of Any Multi-Drug Resistant Organisms: None Reported Past Surgical History: Tonsillectomy Past Anesthesia/Blood Transfusion Reactions: No Reported Reaction Past Psychological History: Anxiety, Depression Smoking Status: Never smoker Past Alcohol Use History: None Reported Past Drug Use History: None Reported - Past Family History Mother Family Medical History: Diabetes Mellitus Medications and Allergies Home Medications Medication Instructions Recorded Confirmed Type [id number] Acid 1 each PO DAILY #30 cap 08/08/22 03/29/23 Rx [-U Capsule] Insulin NPH Human Isophane 20 units SQ DAILY 03/29/23 03/29/23 History [Novolin N] Allergies Allergy/AdvReac Type Severity Reaction Status Date / Time No Known Allergies Allergy Verified 03/29/23 11:58 Exam Vital Signs Temp Pulse Resp BP Pulse Ox 03/29/23 11:58 97.7 F 107 H 16 130/77 03/29/23 11:33 97.6 F 118 H 18 140/68 98 Intake and Output 03/28/23 03/29/23 03/29/23 22:59 06:59 14:59 Other: Weight 163.293 kg Focused physical exam is performed. This is an obese in no apparent distress. Abdomen is gravid and non-tender. Cervical exam is 1.5 centimeters, 60% effaced, and -2 station. Extremities are non-tender, non-edematous. heart tones are reactive and reassuring. Tocometer is not graphing any contractions. Results Result Diagrams: 03/29/23 12:00 03/29/23 12:00 Abnormal Lab Results - Last 24 Hours (Table) 03/29/23 03/29/23 03/29/23 Range/Units 11:51 12:00 12:00 WBC 16.0 H (3.8-10.6) k/uL MCV 79.0 L (80.0-100.0) fL Neutrophils # 11.8 H (1.3-7.7) k/uL APTT 19.7 L (22.0-30.0) sec Creatinine (0.52-1.04) mg/dL POC Glucose (mg/dL) 129 H (70-110) mg/dL Urine Appearance (Clear) Urine Protein (Negative) Urine Glucose (UA) (Negative) Urine Ketones (Negative) Calcium Oxalate Crystal (None) /hpf Urine Bacteria (None) /hpf Urine Mucus (None) /hpf 03/29/23 03/29/23 Range/Units 12:00 12:00 WBC (3.8-10.6) k/uL MCV (80.0-100.0) fL Neutrophils # (1.3-7.7) k/uL APTT (22.0-30.0) sec Creatinine 0.50 L (0.52-1.04) mg/dL POC Glucose (mg/dL) (70-110) mg/dL Urine Appearance Cloudy H (Clear) Urine Protein 1+ H (Negative) Urine Glucose (UA) Trace H (Negative) Urine Ketones Trace H (Negative) Calcium Oxalate Crystal Moderate H (None) /hpf Urine Bacteria Occasional H (None) /hpf Urine Mucus Many H (None) /hpf Assessment and Plan Assessment: 22 year old at 37 weeks and 0 days with gestational hypertension and poorly controlled gestatational diabetes (A2, insulin prescribed but not taken) Plan: 1. Medical IOL. NPO, mIVF. Plan for cooks catheter with low dose oxytocin for 6- 12 hours. IV nubain prn. Continuous EFM. Close monitoring of patient. 2. Gestational HTN. PIH labs within normal limits, P:C 0.2. Close monitoring of BPs. 3. A2 Gestational Diabetes, poorly controlled. Insulin prescribed but patient not compliant. +68 pounds weight gain this , shoulder dystocia risk. POC 129, will repeat in 4 hours. Time with Patient: Less than 30 (15 minutes)
[2023-03-29] MEDS ORDERED: CARBOPROST TROMETHAMINE 250 MCG/ML 1 ML AMP IM PRN (15:18)
[2023-03-29] MEDS ORDERED: TRANEXAMIC 1,000 MG/100ML-NACL 1,000 MG in EMPTY BAG 1 BAG IV PRN (15:18)
[2023-03-29] MEDS ORDERED: LIDOCAINE 0.5% (PF) 5 MG/ML (50 ML SDV) SQ PRN (15:18)
[2023-03-29] MEDS ORDERED: TERBUTALINE 1 MG/ML VIAL SQ PRN (15:18)
[2023-03-29] MEDS ORDERED: miSOPROStoL 200 MCG TAB PO PRN (15:18)
[2023-03-29] MEDS ORDERED: OXYTOCIN 10 UNIT/ML 1 ML VIAL IM PRN (15:18)
[2023-03-29] MEDS ORDERED: METHYLERGONOVINE 0.2 MG/ML 1 ML AMP IM PRN (15:18)
[2023-03-29] MEDS: LACTATED RINGERS 1,000 ML IV SCH ×2 (15:23→22:44)
[2023-03-29] MEDS: OXYTOCIN 30 UNITS/500 ML NS 30 UNIT in SALINE 1 500ML.BAG IV SCH (15:24)
[2023-03-29] MEDS ORDERED: LACTATED RINGERS 1,000 ML IV SCH (15:30)
[2023-03-30] MEDS ORDERED: ONDANSETRON 4 MG/2 ML VIAL IVP PRN (01:25)
[2023-03-30] MEDS ORDERED: SODIUM CHLORIDE 0.9% 100 ML BAG ONE (01:41)
[2023-03-30] MEDS ORDERED: ROPIVACAINE 5 MG/ML 20 ML AMPULE ONE (01:41)
[2023-03-30] MEDS ORDERED: fentaNYL (PF) 50 MCG/ML 5 ML AMP ONE (01:41)
[2023-03-30] MEDS: LACTATED RINGERS 1,000 ML IV SCH ×2 (02:00→15:53)
[2023-03-30] MEDS ORDERED: SIMETHICONE 80 MG CHEWABLE PO PRN (14:13)
[2023-03-30] MEDS ORDERED: diphenhydrAMINE 50 MG/ML 1 ML VIAL IVP PRN ×2 (14:13)
[2023-03-30] MEDS ORDERED: HYDROCORTISONE 2.5% RECTAL CREAM 30 GM TUBE RECTAL PRN (14:13)
[2023-03-30] MEDS ORDERED: diphenhydrAMINE 25 MG CAP PO PRN (14:13)
[2023-03-30] MEDS ORDERED: ZOLPIDEM 5 MG TAB PO PRN (14:13)
[2023-03-30] MEDS ORDERED: BENZOCAINE/MENTHOL SPRAY 1 GM/SPRAY AEROSOL TOPICAL PRN (14:13)
[2023-03-30] MEDS ORDERED: ACETAMINOPHEN TAB 325 MG TAB PO PRN (14:13)
[2023-03-30] MEDS ORDERED: LANOLIN CREAM 5 GM TUBE TOPICAL PRN (14:13)
[2023-03-30] MEDS ORDERED: diphenhydrAMINE 50 MG CAP PO PRN (14:13)
--- NOTE | 2023-03-30 14:13 | P.PROBDLV ---
Vaginal Delivery Note - . Vaginal Delivery Note: DATE OF SERVICE: 03/30/2023 PROCEDURE: Normal Vaginal Delivery ATTENDING: Dr. Dianna Richard MD ESTIMATED BLOOD LOSS: 200 mL FINDINGS: VFI, Apgars 7/8. Weight 4340 grams (9 pounds, 9 ounces) PROCEDURE: Ms. Ramírez is a 22 year old at 37 weeks and 1 day being medically induced for poorly-controlled gestational diabetes non-compliant with insulin and gestational hypertension. The has been complicated by a suspected large for gestational age status of the fetus and an excessive weight gain in . For further details, please review the admitting H&P. Cooks catheter was placed with low-dose oxytocin. The cooks catheter fell out s pontaneously and pitocin was titrated per protocol. The patient received epidural anesthesia per her request. AROM was undertaken revealing clear amniotic fluid. The patient was completely dilated at 1158. The patient pushed for approximately 100 minutes. Head was delivered over an intact perineum in occiput posterior position, followed by shoulder and body. A viable female infant was delivered at 1342. The infant was placed on the maternal abdomen and bulb suctioned. Cord was clamped and cut after a 30-second delay. The was handed off to the pediatric team. Placenta was delivered whole with gentle cord traction at 1352. Oxytocin was started to facilitate uterine tone. Uterine fundus was found to be firm and below the umbilicus upon fundal massage. Thorough examination of the cervix, vagina, periurethral area, and perineum revealed a second degree perineal laceration which was repaired with 2-0 Vicryl in the usual fashion. The patient is stable and allowed to begin the bonding process.require repair and an intact perineum. Patient stable .
[2023-03-30] MEDS ORDERED: OXYTOCIN 30 UNITS/500 ML NS 30 UNIT in SALINE 1 500ML.BAG IV SCH (14:15)
[2023-03-30] MEDS: OXYTOCIN 30 UNITS/500 ML NS 30 UNIT in SALINE 1 500ML.BAG IV SCH (14:27)
[2023-03-30] MEDS: IBUPROFEN 600 MG TAB PO PRN (14:32)
[2023-03-30 14:39] VITALS: RESP 16
[2023-03-30] MEDS: SENNOSIDES-DOCUSATE SODIUM 1 EACH TAB PO SCH (20:25)
[2023-03-31] MEDS: LACTATED RINGERS 1,000 ML IV SCH ×2 (01:51→10:20)
[2023-03-31 05:00] VITALS: TEMP 98.7
[2023-03-31 07:34] LABS: Basophils % (A) 0 %; Eosinophils # (A) 0.1 k/uL (0-0.7); Eosinophils % (A) 0 %; HCT 30.2 % (34.0-46.0); Hypochromasia Moderate; Lymphocytes # (A) 2.8 k/uL (1.0-4.8); Lymphocytes % (A) 19 %; MCH 26.1 pg (25.0-35.0); MCHC 32.5 g/dL (31.0-37.0); MCV 80.4 fL (80.0-100.0); Mean Platelet Volume 8.9; Monocytes # (A) 0.8 k/uL (0-1.0); Monocytes % (A) 6 %; Neutrophils # (A) 10.6 k/uL (1.3-7.7); Neutrophils % (A) 71 %; Platelet Count 233 k/uL (150-450); Poikilocytosis Slight; RBC 3.76 m/uL (3.80-5.40); RDW 15.4 % (11.5-15.5); WBC 14.8 k/uL (3.8-10.6)
[2023-03-31] MEDS: IBUPROFEN 600 MG TAB PO PRN (07:38)
[2023-03-31] MEDS: SENNOSIDES-DOCUSATE SODIUM 1 EACH TAB PO SCH (07:38)
[2023-03-31 07:46] LABS: HGB 9.8 gm/dL (11.4-16.0)
[2023-03-31 08:34] VITALS: BP 145/73; PULSE 102
--- NOTE | 2023-03-31 09:14 | P.PNOBGVD ---
Subjective - Subjective Principal diagnosis: s/p normal vaginal delivery Interval history: The patient is doing well this morning and had no acute events overnight. She has no complaints this morning. She desires discharge home today. She reports minimal lochia, passing flatus, voiding without difficulty, ambulating, and eating/drinking without nausea or vomiting. She is formula feeding her infant without difficulty. She denies chest pain, shortness of breathing, fevers, or chills overnight. She denies pain or swelling in the legs. She denies headache, visual disturbances, and right upper quadrant pain. Patient reports: Reports appetite normal, Reports voiding normally, Reports pain well controlled, Reports ambulating normally [place]: doing well Objective - Latest Vital Signs Latest vital signs: Vital Signs Temp Pulse Resp BP Pulse Ox 03/31/23 08:00 98.7 F 102 H 16 145/73 03/31/23 04:00 98.7 F 106 H 16 125/75 97 03/31/23 00:00 97.9 F 96 16 144/83 97 03/30/23 20:00 99.2 F 103 H 16 136/83 03/30/23 16:03 97.2 F L 93 16 131/68 03/30/23 15:33 98 16 128/70 03/30/23 15:03 100 16 119/73 03/30/23 14:48 97.0 F L 101 H 16 144/67 03/30/23 14:33 96 16 138/68 03/30/23 14:18 97 16 133/64 03/30/23 14:03 97.1 F L 112 H 18 126/66 Intake and Output 03/30/23 03/31/23 03/31/23 22:59 06:59 14:59 Output Total 165 Balance -165 Output: Output, Quantitative 165 Blood Loss Other: # Voids 0 2 2 - Exam Extremities: Present: normal Abdomen: Present: normal appearance, soft Uterus: Present: normal, firm - Labs Labs: Abnormal Lab Results - Last 24 Hours (Table) 03/31/23 Range/Units 07:10 WBC 14.8 H (3.8-10.6) k/uL RBC 3.76 L (3.80-5.40) m/uL Hgb 9.8 L D (11.4-16.0) gm/dL Hct 30.2 L (34.0-46.0) % Neutrophils # 10.6 H (1.3-7.7) k/uL Assessment and Plan Assessment: 22-year-old now day #1 status post normal vaginal delivery after medical induction of labor for gestational hypertension and A2 gestational diabetes, poorly controlled. Plan: 1. . Patient meeting all milestones appropriately. 2. Gestational Hypertension. Patient is asymptomatic. All blood pressures have been less than 150s/90s. Patient will monitor daily blood pressures outpatient and knows to call the office with blood pressures higher than 160s/110s. PIH workup was negative, urine protein to creatinine ratio was 0.05. 3. A2 gestational diabetes, poorly controlled. The patient will need a 6 week 2 hour GTT. 4.base viable female . Doing well at the bedside and formula feeding. Dispo: Anticipate discharge home today
--- NOTE | 2023-03-31 09:17 | P.DS ---
Providers Date of admission: 03/29/23 11:46 Expected date of discharge: 03/31/23 Attending physician: Dianna Richard MD Primary care physician: Stated None Hospital Course: 22-year-old now day #1 status post normal vaginal delivery after medical induction of labor for gestational hypertension and A2 gestational diabetes, poorly controlled. The patient was induced with unremarkable labor course and effective pushing resulting in a viable female infant.The patient is doing well this morning and had no acute events overnight. She desires discharge home today. She has no complaints this morning. She reports minimal lochia, passing flatus, voiding without difficulty, ambulating, and eating/drinking without nausea or vomiting. doing well at bedside. She denies chest pain, shortness of breathing, fevers, or chills overnight. She denies pain or swelling in the legs. She denies headache, right upper quadrant pain, and visual disturbances. restrictions are reviewed with the patient including pelvic rest for 6 weeks. The patient is encouraged to call the office if she experiences any heavy bleeding, foul-smelling discharge, breast complaints, or any if she has any other concerns. She will check blood pressures at home daily and knows to call the office for blood pressures 160s/110s or higher. She will follow up in the office in 1 week for blood pressure check. All questions are answered. Assessment: 22-year-old now day #1 status post normal vaginal delivery after medical induction of labor for gestational hypertension and A2 gestational diabetes, poorly controlled. Patient Condition at Discharge: Good Plan - Discharge Summary Discharge Rx Participant: No New Discharge Prescriptions: No Action Insulin NPH Human Isophane [Novolin N] 20 units SQ DAILY [id number] Acid [-U Capsule] 1 each PO DAILY #30 cap Discharge Medication List Xum-[id number]-Kqiix Acid [-U Capsule] 1 each PO DAILY #30 cap 08/08/22 [Rx] Insulin NPH Human Isophane [Novolin N] 20 units SQ DAILY 03/29/23 [History] Follow up Appointment(s)/Referral(s): Dianna Richard MD [STAFF PHYSICIAN] - 1 Week (blood pressure check) Activity/Diet/Wound Care/Special Instructions: Instructions 1. Do not begin any exercise program for 3 weeks. 2. Do not resume sexual relations for 6 weeks or longer if uncomfortable. 3. You may take tub baths or showers at any time. 4. You may use tampons if desired after 6 weeks. 5. Keep any areas repaired with stitches clean and dry. 6. If you are not nursing, wear a good fitting, supportive bra during the day and limit fluid intake for at least 1 week to prevent breast engorgement. 7. Call the office, , within the next week to make appointment for your 6 week checkup if it has not already been made. 8. Report any of the following occurrences to the doctor promptly: a. Heavy, excessive bleeding b. Chills, fever c. Burning or frequency of urination d. Pain or redness and breasts if nursing e. Increasing pain or swelling of vulva (stitches). Discharge Disposition: HOME SELF-CARE
== END 2023-03-31 14:25 | disposition home or self-care (01) | DRG 560 ==
LOC: FBPOP 10:55 → 4FBP 11:46
PROVIDERS: ADMIT Obstetrics & Gynecology; ATTEND Obstetrics & Gynecology
PROC: 10E0XZZ Delivery of Products of Conception, External Approach (ICD-10-PCS; principal; 2023-03-30)
PROC: 10907ZC Drainage of Amniotic Fluid, Therapeutic from Products of Conception, Via Natural or Artificial Opening (ICD-10-PCS; 2023-03-30)
PROC: 3E033VJ Introduction of Other Hormone into Peripheral Vein, Percutaneous Approach (ICD-10-PCS; 2023-03-30)
PROC: 0KQM0ZZ Repair Perineum Muscle, Open Approach (ICD-10-PCS; 2023-03-30)
DX: O13.4 Gestational [pregnancy-induced] hypertension without significant proteinuria, complicating childbirth (principal); Z37.0 Single live birth; E08.65 Diabetes mellitus due to underlying condition with hyperglycemia; O24.424 Gestational diabetes mellitus in childbirth, insulin controlled; E66.9 Obesity, unspecified; O99.214 Obesity complicating childbirth; T38.3X6A Underdosing of insulin and oral hypoglycemic [antidiabetic] drugs, initial encounter; O36.63X0 Maternal care for excessive fetal growth, third trimester, not applicable or unspecified; O26.03 Excessive weight gain in pregnancy, third trimester; O32.8XX0 Maternal care for other malpresentation of fetus, not applicable or unspecified; O70.1 Second degree perineal laceration during delivery; O76 Abnormality in fetal heart rate and rhythm complicating labor and delivery; Z79.4 Long term (current) use of insulin; Z91.51 Personal history of suicidal behavior; Z83.3 Family history of diabetes mellitus; Z3A.37 37 weeks gestation of pregnancy; Z91.128 Patient's intentional underdosing of medication regimen for other reason
CPT/HCPCS: 59025; 81001; 82565; 82570; 83615; 84156; 84450; 84460; 84520; 84550; 85025; 85384; 85610; 85730; 86850; 86900; 86901; 99215